=== PATIENT | male | born 1965 | race African-American/Black ===

== ENCOUNTER 2022-12-10 07:08 | Emergency (ER) | payer BC, OTHER ==
[2022-12-10 07:40] VITALS: PULSE 108; RESP 16; BMI 29.7
[2022-12-10] MEDS ORDERED: ONDANSETRON 4 MG/2 ML VIAL ONE ×2 (07:52→08:43)
[2022-12-10] MEDS ORDERED: ONDANSETRON 4 MG/2 ML VIAL IVPUSH ONE (07:55)
[2022-12-10] MEDS ORDERED: SODIUM CHLORIDE 1,000 ML IV STA (07:55)
[2022-12-10 08:54] LABS: VENOUS BASE EXCESS -3.1 mmol/L (-2-2); VENOUS O2 SATURATION 23.4 % (70-80); VENOUS PCO2 52.7 mmHg (38-52); VENOUS PH 7.283 (7.310-7.410)
[2022-12-10 08:56] LABS: INR 1.08 (0.83-1.09); PROTHROMBIN TIME (PATIENT) 12.4 SEC (9.7-13.0)
[2022-12-10 08:59] LABS: ACTIVATED PTT 27.2 SECONDS (25.2-36.5)
[2022-12-10 09:05] LABS: HEMATOCRIT 46.6 % (35.4-49); HEMOGLOBIN 14.8 GM/dL (11.7-16.9); MCH 26.6 pg (25.7-33.7); MCHC 31.9 g/dl (32.0-35.9); MEAN CELL VOLUME 83.4 fl (80-96); MEAN PLT VOLUME 8.2 fl (7.5-11.1); PLATELET COUNT 205 10^3/uL (134-434); RBC 5.58 M/mm3 (4.00-5.60); RDW 14.6 % (11.9-15.9); WHITE BLOOD COUNT 12.1 K/mm3 (4.0-10.0)
[2022-12-10 09:11] LABS: LACTIC ACID 3.8 mmol/L (0.4-2.0)
[2022-12-10 09:15] LABS: CHLORIDE 99 mmol/L (98-107); SODIUM 134 mmol/L (136-145)
[2022-12-10 09:17] LABS: CALCIUM 9.4 mg/dL (8.5-10.1)
[2022-12-10 09:18] LABS: ALBUMIN 4.2 g/dl (3.4-5.0); ANION GAP 9 MMOL/L (8-16); BLOOD UREA NITROGEN 21.4 mg/dL (7-18); CO2 25 mmol/L (21-32)
[2022-12-10 09:21] LABS: CREATININE 1.2 mg/dL (0.55-1.3); SGOT/AST 18 U/L (15-37); SGPT/ALT 28 U/L (13-61)
[2022-12-10 09:23] LABS: BILIRUBIN,TOTAL 0.5 mg/dL (0.2-1); TOT PROT 9.1 g/dl (6.4-8.2)
[2022-12-10 09:24] LABS: ALK PHOS 89 U/L (45-117)
[2022-12-10 09:52] LABS: GLUCOSE,RANDOM 419 mg/dL (74-106)
[2022-12-10] MEDS ORDERED: LACTATED RINGERS SOLUTION 1000 ML INFUS.BAG IV ONE (10:24)
[2022-12-10] MEDS ORDERED: INSULIN REGULAR HUMAN 100 UNITS/ML *VIAL SQ ONE (11:48)
[2022-12-10 15:16] VITALS: BP 120/75; TEMP 98.6
== END 2022-12-10 15:15 | disposition home or self-care (01) ==
LOC: JER 07:08
PROC: 3E033GC Introduction of Other Therapeutic Substance into Peripheral Vein, Percutaneous Approach (ICD-10-PCS; principal; 2022-12-10)
PROC: 3E0337Z Introduction of Electrolytic and Water Balance Substance into Peripheral Vein, Percutaneous Approach (ICD-10-PCS; 2022-12-10)
DX: K52.9 Noninfective gastroenteritis and colitis, unspecified (principal); R11.2 Nausea with vomiting, unspecified
CPT/HCPCS: 0241U-QW; 36415; 71046-TC-FY; 74177-TC; 80053; 82010; 82803; 82962; 83605; 83690; 84484; 85025; 85610; 85730; 87086; 99285-25; Q9967

== ENCOUNTER 2022-12-15 17:29 | Emergency (ER) | payer BC, OTHER ==
[2022-12-15 17:35] VITALS: BP 132/87; PULSE 99; RESP 18; TEMP 98.4; BMI 26.4
[2022-12-15 21:09] LABS: BASO % 0.8 % (0-2.0); HEMATOCRIT 39.8 % (35.4-49); HEMOGLOBIN 13.1 GM/dL (11.7-16.9); LYMPH % 23.4 % (8-40); MCH 27.3 pg (25.7-33.7); MCHC 32.9 g/dl (32.0-35.9); MEAN CELL VOLUME 82.9 fl (80-96); MEAN PLT VOLUME 7.8 fl (7.5-11.1); MONO % 6.7 % (3.8-10.2); NEUT % 67.1 % (42.8-82.8); PLATELET COUNT 221 10^3/uL (134-434); RDW 14.7 % (11.9-15.9); WHITE BLOOD COUNT 7.4 K/mm3 (4.0-10.0)
[2022-12-15 21:35] LABS: CALCIUM 9.4 mg/dL (8.5-10.1)
[2022-12-15 21:37] LABS: ALBUMIN 3.9 g/dl (3.4-5.0); BLOOD UREA NITROGEN 19.8 mg/dL (7-18)
[2022-12-15 21:39] LABS: CREATININE 1.3 mg/dL (0.55-1.3)
[2022-12-15 21:41] LABS: BILIRUBIN,TOTAL 0.3 mg/dL (0.2-1); TOT PROT 8.1 g/dl (6.4-8.2)
[2022-12-15 23:11] LABS: PH,URINE 5.5 (5.0-8.0); URINE APPEARANCE CLEAR; URINE BILIRUBIN NEGATIVE (NEGATIVE); URINE COLOR YELLOW; URINE GLUCOSE (UA) 3+ (NEGATIVE); URINE KETONE NEGATIVE (NEGATIVE); URINE LEUK ESTERASE NEGATIVE (NEGATIVE); URINE NITRITE NEGATIVE (NEGATIVE); URINE PROTEIN NEGATIVE (NEGATIVE)
== END 2022-12-16 00:05 | disposition home or self-care (01) ==
LOC: JER 17:29
DX: K46.9 Unspecified abdominal hernia without obstruction or gangrene (principal)
CPT/HCPCS: 36415; 74176-TC; 80053; 81003; 85025; 87086; 99284-25

== ENCOUNTER 2023-07-29 04:07 | Emergency (ER) | payer OTHER ==
[2023-07-29 04:19] VITALS: BMI 21.1
[2023-07-29] MEDS ORDERED: SODIUM CHLORIDE 0.9% 500 ML INFUS.BAG IV ONE (04:32)
[2023-07-29 05:35] LABS: BASO % 0.6 % (0-2.0); EOS % 0.7 % (0-4.5); HEMATOCRIT 31.3 % (35.4-49); HEMOGLOBIN 10.2 GM/dL (11.7-16.9); LYMPH % 5.2 % (8-40); MCH 26.7 pg (25.7-33.7); MCHC 32.7 g/dl (32.0-35.9); MEAN CELL VOLUME 81.6 fl (80-96); MEAN PLT VOLUME 8.2 fl (7.5-11.1); NEUT % 87.5 % (42.8-82.8); PLATELET COUNT 251 10^3/uL (134-434); RBC 3.84 M/mm3 (4.00-5.60); RDW 14.1 % (11.9-15.9); WHITE BLOOD COUNT 11.7 K/mm3 (4.0-10.0)
[2023-07-29 05:42] LABS: VENOUS BASE EXCESS 0.2 mmol/L (-2-2); VENOUS O2 SATURATION 43.2 % (70-80); VENOUS PCO2 46.5 mmHg (38-52); VENOUS PH 7.364 (7.310-7.410)
[2023-07-29 05:53] LABS: POTASSIUM 4.2 mmol/L (3.5-5.1)
[2023-07-29 05:55] LABS: CALCIUM 8.3 mg/dL (8.5-10.1)
[2023-07-29 05:56] LABS: BLOOD UREA NITROGEN 13.3 mg/dL (7-18); MAGNESIUM 1.8 mg/dL (1.8-2.4)
[2023-07-29 05:59] LABS: CREATININE 1.1 mg/dL (0.55-1.3)
[2023-07-29 06:00] LABS: BILIRUBIN,TOTAL 0.5 mg/dL (0.2-1)
[2023-07-29 09:06] LABS: PH,URINE 6.5 (5.0-8.0); URINE APPEARANCE CLEAR; URINE BILIRUBIN NEGATIVE (NEGATIVE); URINE COLOR YELLOW; URINE GLUCOSE (UA) 3+ (NEGATIVE); URINE KETONE 2+ (NEGATIVE); URINE LEUK ESTERASE NEGATIVE (NEGATIVE); URINE NITRITE NEGATIVE (NEGATIVE); URINE PROTEIN NEGATIVE (NEGATIVE)
[2023-07-29 13:13] VITALS: BP 130/70; PULSE 94; RESP 14; TEMP 98.5
== END 2023-07-29 13:20 | disposition admitted as inpatient to this hospital (09) ==
LOC: JER 04:07
DX: R42 Dizziness and giddiness (principal); R11.2 Nausea with vomiting, unspecified; R53.81 Other malaise; E11.65 Type 2 diabetes mellitus with hyperglycemia; R00.0 Tachycardia, unspecified
CPT/HCPCS: 36415; 70450-TC; 80053; 81003; 82010; 82803; 82962; 83735; 84484; 85025; 87086; 93005; 93010; 99285-25